=== PATIENT | female | born 1995 | race Caucasian/White ===

== ENCOUNTER 2016-05-08 01:24 | Emergency (ER) | payer MEDICAID, OTHER ==
[~2016-05-08] VITALS: Ht 162.6 cm; Wt 64.0 kg
[2016-05-08 01:28] VITALS: Ht 162.6 cm; Wt 64.0 kg
[2016-05-08] MEDS ORDERED: AMO500 PO (01:57)
[2016-05-08] MEDS ORDERED: IBUP-1542 PO (01:57)
--- NOTE | 2016-05-08 02:01 | ERD ---
ER Documentation Chief Complaint Date/Time DATE: 05/08/16 TIME: 01:59 Chief Complaint sore throat x 1 day HPI 21-year-old female presents here in emergency department for complains of sore throat started today. Patient described the pain as throbbing pain, 6/10 scale, is worse upon swallowing. Patient denies any shortness of breath or stridor. Patient denies any fever or chills. Patient denies any cough. Patient denies any runny nose nasal congestion. Patient did not take any medications to help with symptoms. ROS All systems reviewed and are negative except as per history of present illness. Medications Home Meds Active Scripts Ibuprofen* (Motrin*) 600 Mg Tab, 600 MG PO Q6H Y for PAIN AND OR ELEVATED TEMP, #30 TAB Prov:LEX GARCES [employer] 05/08/16 Amoxicillin* (Amoxicillin*) 500 Mg Cap, 500 MG PO TID for 10 Days, CAP Prov:LEX GARCES [employer] 05/08/16 Allergies Allergies: Coded Allergies: No Known Allergy (Unverified , 05/08/16) PMhx/Soc Immunizations: Up to date Medical and Surgical Hx: pt denies Medical Hx, pt denies Surgical Hx Hx Alcohol Use: No Hx Substance Use: No Hx Tobacco Use: No Smoking Status: Never smoker FmHx Family History: No coronary disease, No diabetes, No other Physical Exam Vitals Vital Signs Date Time Temp Pulse Resp B/P Pulse Ox O2 Delivery O2 Flow Rate FiO2 05/08/16 01:28 98.3 68 20 122/80 100 Physical Exam GENERAL: The patient is well developed and appropriate for usual state of health, in no apparent distress. HEENT: Atraumatic. Ears: Normal tympanic membrane, no erythema or bulging. No ear canal swelling. No ear discharge. Nose: normal nasal turbinates, no erythema or swelling. Normal nasal discharge. Throat: oropharynx are erythematous with tonsillar swelling and tonsillar exudate noted. No lymphadenopathy. CHEST: Clear to auscultation bilaterally. There are no rales, wheezes or rhonchi. HEART: Regular rate and rhythm. No murmurs, clicks, rubs or gallops. No S3 or S4. ABDOMEN: Soft, nontender and nondistended. Good bowel sounds. No rebound or guarding. No gross peritonitis. No gross organomegaly or masses. No Rae sign or McBurney point tenderness. BACK: No midline or flank tenderness. EXTREMITIES: Equal pulses bilaterally. There is no peripheral clubbing, cyanosis or edema. No focal swelling or erythema. Full range of motion. Grossly neurovascularly intact. NEURO: Alert and oriented. Cranial nerves 2-12 intact. Motor strength in all 4 extremities with 5/5 strength. Sensation grossly intact. Normal speech and gait. SKIN: There is no apparent rash or petechia. The skin is warm and dry. HEMATOLOGIC AND LYMPHATIC: There is no evidence of excessive bruising or lymphedema. No gross cervical, axillary, or inguinal lymphadenopathy. Procedures/MDM Medical decision making: Patient's symptoms most likely consistent with acute bacterial pharyngitis, most likely strep throat. No symptoms of peritonsillar abscess, laryngitis, epiglottitis, and symptoms of oral airway obstruction. Patient was given for amoxicillin, ibuprofen, is advised to do salt water gargles, rest, drink a lot of water, return to emergency department for any worsening symptoms, follow-up with primary care doctor in 2-3 days for reevaluation of symptoms. Departure Diagnosis: Primary Impression: Acute bacterial pharyngitis Condition: Stable Patient Instructions: Pharyngitis, Strep (Presumed) LEX GARCES NP May 08, 2016 02:01
== END 2016-05-08 02:27 | disposition home or self-care (01) ==
LOC: FTE 01:24
DX: J02.8 Acute pharyngitis due to other specified organisms (principal); B96.89 Other specified bacterial agents as the cause of diseases classified elsewhere
CPT/HCPCS: 99283

== ENCOUNTER 2017-02-23 22:46 | Emergency (ER) | END 2017-02-24 03:29 | disposition home or self-care (01) ==